=== PATIENT | female | born 1945 | race Caucasian/White ===

== ENCOUNTER 2023-04-08 08:41 | Emergency (ER) | payer SELFPAY ==
[2023-04-08 08:46] VITALS: BP 160/116; PULSE 117; RESP 17; TEMP 37; O2SAT 96
[2023-04-08 09:23] LABS: Bilirubin Small (Negative); Blood Negative (Negative); Clarity Clear (Clear); Glucose 100 mg/dL (Negative); Ketones 15 mg/dL (Negative); Leukocyte Esterase Small (Negative); Nitrite Negative (Negative); Specific Gravity >= 1.030 (1.005-1.025)
--- NOTE | 2023-04-08 09:48 | W.ED.GENAD ---
Discharge Plan Disposition Patient Disposition: Home Discharge Details Clinical Impression: Acute UTI, Elevated blood pressure reading Primary Care Provider: None,None ED Provider: Rusty Sanz Home Meds and New Rx's Prescriptions: New cephalexin 500 mg capsule 500 mg PO TID 7 Days Qty: 21 0RF Discharge Instructions Instructions: Urinary Tract Infection in Women (ED) Additional Instructions: It was noted today that your blood pressure was elevated. It is recommended that you have a follow-up appointment with a primary care provider or at least an urgent care for recheck of your blood pressure. Continue to stay well-hydrated and take antibiotics as prescribed and for the full course. Return to the emergency department immediately for any new or significant worsening of symptoms. Referrals: Primary Care Provider [Outside] Discharge Data Discharge Date/Time-TO BE ENTERED AT DEPARTURE: 04/08/23 10:05 Medical Decision Making Patient presenting to the emergency department for chief complaint of burning with urination, urinary hesitancy, frequency, and malaise. She states this been going on for the past 5 days and is not improving and pressure is only worsening. Patient denies fever chills, flank pain, nausea vomiting, or other symptoms. Physical exam is benign. History consistent with urinary tract infection. This time I doubt pyelonephritis, patient denies all vaginal symptoms, no GI symptoms. Urinalysis was performed but patient was only able to give a limited sample but limited sample is positive for leukocyte esterase and is fairly concentrated. We will treat patient for urinary tract infection and have patient return for any new or significant worsening symptoms. Of note patient was hypertensive at visit but she states she does not go to the doctor and does not want to take medication. Patient was encouraged to monitor blood pressure. After discussion of diagnosis and plan of care patient has no further needs, questions, or concerns and states clear understanding to return to the emergency department for any worsening symptoms. This documentation was generated using [employer] dictation system, please disregard any oddities of phrase or misspellings. HPI General Mode of arrival: ambulatory. Date/Time Provider Initiated Documentation: 04/08/23 09:37. Limitations to Documentation: no limitations. Information obtained by: patient and RN notes reviewed. History of Present Illness 77 year old F presents to the emergency department with the chief complaint of Bladder pressure, burning with urination, described as mild and moderate, Patient started experiencing this day(s) (5) and it has been constant. No relieving factors improve symptom(s), No exacerbating factors reported . Patient did receive the following treatments prior to arrival, none Related Data Home Medications Medication Instructions Recorded Confirmed cephalexin 500 mg capsule 500 mg PO TID 7 days #21 caps 04/08/23 Previous Rx's Medication Instructions Recorded cephalexin 500 mg capsule 500 mg PO TID 7 days #21 caps 04/08/23 Allergies Allergy/AdvReac Type Severity Reaction Status Date / Time No Known Allergies Allergy Unverified 04/08/23 08:52 General Stated Complaint: Urinary RYDER: 4 Review of Systems Constitutional Constitutional: Denies body ache(s), Denies chills, Denies fever(s), Reports malaise and Denies weakness Cardiovascular Cardiovascular: Denies chest pain Respiratory Respiratory: Reports system reviewed and no additional complaints, except as documented Gastrointestinal Gastrointestinal: Denies abdominal pain, Denies nausea and Denies vomiting Genitourinary Genitourinary: Reports as per HPI, Denies hematuria, Reports dysuria, Denies prolapse symptoms, Denies flank pain, Reports urinary hesitancy, Reports urinary urgency and Denies vaginal discharge Neurologic Neurologic: Denies confusion and Denies weakness Psychiatric Psychiatric: Denies confusion PFSH All Active Problems (Updated 04/08/23 @ 09:56 by Rusty Sanz NP) Acute UTI (Acute) Elevated blood pressure reading (Acute) Social History Smoking/Tobacco Use Status: Never Smoking risk assessment performed?: Yes Alcohol Intake: never Drug use: Never Substance use type: does not use Do you feel safe at home: Yes Do you feel safe in your relationship?: Yes Exam Const General: cooperative and no acute distress Orientation: alert, awake and oriented x3 Resp Effort & Inspection: normal respiratory effort and able to speak in complete sentences Auscultation: clear to auscultation bilaterally Cardio Rate: regular rate Rhythm: regular rhythm Heart Sounds: S1 normal and S2 normal GI Palpation: nontender Back/Spine/Pelvis Back: no CVA tenderness Neuro General: patient alert, patient awake and patient oriented x3 Course Vital Signs Vital signs: Vital Signs Temperature 37.0 C 04/08/23 08:46 Pulse 117 H 04/08/23 08:46 Respiratory Rate 17 04/08/23 08:46 Blood Pressure 160/116 H 04/08/23 08:46 Pulse Oximetry 96 04/08/23 08:46 Temperature 37.0 C 04/08/23 08:46 Temperature Source Oral 04/08/23 08:46 Pulse 117 H 04/08/23 08:46 Respiratory Rate 17 04/08/23 08:46 Respiratory Effort Normal 04/08/23 08:51 Blood Pressure 160/116 H 04/08/23 08:46 Blood Pressure Position Sitting 04/08/23 08:46 Pulse Oximetry 96 04/08/23 08:46 Oxygen Delivery Method Room Air 04/08/23 08:46 Oxygen Flow Rate 0 04/08/23 08:46 Pain Level 0 04/08/23 08:51 Lab/Test Results Lab/Test Results: Laboratory Tests Range/Units 04/08/23 08:58 Urine Color (Yellow) Yellow Urine Clarity (Clear) Clear Urine pH (5-8) 5.0 Ur Specific [place] (1.005-1.025) >= 1.030 H Urine Protein (Negative) mg/dL 100 H Urine Ketones (Negative) mg/dL 15 H Urine Blood (Negative) Negative Urine Nitrite (Negative) Negative Urine Bilirubin (Negative) Small H Urine Urobilinogen (Up to 0.2) mg/dL 1.0 H Ur Leukocyte Esterase (Negative) Small H Urine Glucose (Negative) mg/dL 100 H
[2023-04-08 10:02] VITALS: BP 173/117; PULSE 104; RESP 18; TEMP 36.5; O2SAT 96
== END 2023-04-08 10:05 | disposition home or self-care (01) ==
PROVIDERS: Emergency Provider Nurse Practitioner Family
DX: N39.0 Urinary tract infection, site not specified (principal); R03.0 Elevated blood-pressure reading, without diagnosis of hypertension
CPT/HCPCS: 99283; 81003; 99284